=== PATIENT | female | born 1960 | race American Indian/Alaskan Native ===

== ENCOUNTER 2022-07-05 12:39 | Emergency (ER) | payer OTHER ==
--- NOTE | 2022-07-05 13:20 | XRay Report ---
LEFT KNEE 2 VIEWS INDICATION: Fall 1 day ago, left knee pain. COMPARISON: None. IMPRESSION: Moderate to severe tricompartmental osteoarthritic changes are identified. No acute osse ous injury or bone lesion is detected. Moderate joint effusion is noted on the lateral image. Signer Name: Bear Weinstein Jr, MD Signed: 07/05/2022 1:15 PM Workstation Name: [id number]
[2022-07-05] MEDS ORDERED: IBUPROFEN 400 MG TAB PO ONE (20:19)
[2022-07-05] MEDS ORDERED: HYDROcodone/ACETAMINOPHEN 5-325 MG TAB PO ONE (20:19)
--- NOTE | 2022-07-05 20:21 | Emergency Department Report ---
ED General Adult HPI - General Chief complaint: Extremity Injury, Lower Stated complaint: FALL/LT KNEE PAIN Time Seen by Provider: 07/05/22 19:56 Source: patient Mode of arrival: Ambulatory Limitations: No Limitations - History of Present Illness Initial comments: 58-year-old female with past medical history hypertension reports to the ER after having a ground-level fall at a parking deck yesterday afternoon. Patient reports left knee pain and left shoulder pain. Patient reports pain is 9 out of 10. Patient reports she was ambulatory after fall yesterday. No other acute symptoms reported at this time. Patient has not taken anything for her pain since her fall. Severity scale (0 -10): 10 - Related Data Previous Rx's Medication Instructions Recorded Last Taken Type Ibuprofen [Motrin] 400 mg PO Q8H PRN 5 Days #15 tablet 07/05/22 Unknown Rx Allergies Allergy/AdvReac Type Severity Reaction Status Date / Time No Known Allergies Allergy Verified 07/05/22 12:52 ED Review of Systems ROS: Stated complaint: FALL/LT KNEE PAIN Other details as noted in HPI Comment: All other systems reviewed and negative Musculoskeletal: other (Left knee left shoulder pain) ED Past Medical Hx - Past Medical History Previous Medical History?: Yes Hx Hypertension: Yes - Surgical History Past Surgical History?: Yes Additional Surgical History: appendectomy - Medications Home Medications: Home Medications Medication Instructions Recorded Confirmed Last Taken Type Ibuprofen [Motrin] 400 mg PO Q8H PRN 5 Days #15 tablet 07/05/22 Unknown Rx ED Physical Exam - General Limitations: No Limitations General appearance: alert, in no apparent distress - Head Head exam: Present: atraumatic, normocephalic - Eye Eye exam: Present: normal appearance - ENT ENT exam: Present: mucous membranes moist - Neck Neck exam: Present: normal inspection - Respiratory Respiratory exam: Present: normal lung sounds bilaterally. Absent: respiratory distress - Cardiovascular Cardiovascular Exam: Present: regular rate, normal rhythm. Absent: systolic murmur, diastolic murmur, rubs, gallop - GI/Abdominal GI/Abdominal exam: Present: soft, normal bowel sounds - Extremities Exam Extremities exam: Present: normal inspection - Expanded Upper Extremity Exam Left Shoulder Exam: Present: full ROM, tenderness. Absent: swelling, deformity - Expanded Lower Extremity Exam Left Knee exam: Present: full ROM, tenderness, swelling. Absent: deformity, disloc ation - Back Exam Back exam: Present: normal inspection - Neurological Exam Neurological exam: Present: alert, oriented X3 - Psychiatric Psychiatric exam: Present: normal affect, normal mood - Skin Skin exam: Present: warm, dry, intact, normal color. Absent: rash ED Course Vital Signs 07/05/22 07/05/22 12:52 22:50 Temperature 98.9 F Pulse Rate 70 58 L Respiratory 16 17 Rate Blood Pressure 174/63 117/66 [Right] O2 Sat by Pulse 100 100 Oximetry ED Medical Decision Making - Radiology Data [address] [address] XRay Report Signed Patient: BECKY GÓMEZ MR#: [id number] 213 : 1960 Acct:[id number] Age/Sex: 61 / F ADM Date: 07/05/22 Loc: ED Attending Dr: Ordering Physician: SHAUNNA BLANCHARD NP Date of Service: 07/05/22 Procedure(s): XR shoulder 2+V LT Accession Number(s): [id number] cc: SHAUNNA BLANCHARD NP Fluoro Time In Minutes: LEFT SHOULDER 3 VIEWS INDICATION / CLINICAL INFORMATION: Left shoulder pain after fall. COMPARISON: None available. FINDINGS: BONES and JOINT(S): No acute fracture or subluxation. There is mild degenerative arthrosis of the glenohumeral and AC joints. SOFT TISSUES: No significant abnormality. ADDITIONAL FINDINGS: None. IMPRESSION: 1. No acute findings. Signer Name: Km High MD Signed: 07/05/2022 9:30 PM Workstation Name: [id number] Transcribed By: MN Dictated By: Km High MD Electronically Authenticated By: Km High MD Signed Date/Time: 07/05/222129 DD/ [address] [address] XRay Report Signed Patient: BECKY GÓMEZ MR#: [id number] 213 : 1960 Acct:[id number] Age/Sex: 61 / F ADM Date: 07/05/22 Loc: ED Attending Dr: Ordering Physician: LYN EDWARDS MD Date of Service: 07/05/22 Procedure(s): XR knee 1-2V LT Accession Number(s): [id number] cc: ED DOC, Fluoro Time In Minutes: LEFT KNEE 2 VIEWS INDICATION: Fall 1 day ago, left knee pain. COMPARISON: None. IMPRESSION: Moderate to severe tricompartmental osteoarthritic changes are identified. No acute osseous injury or bone lesion is detected. Moderate joint effusion is noted on the lateral image. Signer Name: Bear Weinstein Jr, MD Signed: 07/05/2022 1:15 PM Workstation Name: [id number] Transcribed By: TTR Dictated By: BEAR WEINSTEIN JR, MD Electronically Authenticated By: BEAR WEINSTEIN JR, MD Signed Date/Time: 07/05/221314 DD/ 14 TD/TT: - Medical Decision Making 58-year-old female with past medical history hypertension reports to the ER after having a ground-level fall at a parking deck yesterday afternoon. Patient reports left knee pain and left shoulder pain. Patient reports pain is 9 out of 10. Patient reports she was ambulatory after fall yesterday. No other acute symptoms reported at this time. Patient has not taken anything for her pain since her fall. Left shoulder full range of motion intact tenderness noted. No deformity no dislocation noted Left knee for range of motion intact tenderness noted with slight swelling. No deformity no dislocation noted. X-ray of left shoulder and left knee with no acute fracture or dislocation noted. Patient informed of her x-ray of left knee and left shoulder results. Patient is stable for discharge home. Patient reports a decrease in pain after receiving oral pain medication here in ER. Patient informed to follow her primary care provider Vital Signs 07/05/22 07/05/22 12:52 22:50 Temperature 98.9 F Pulse Rate 70 58 L Respiratory 16 17 Rate Blood Pressure 174/63 117/66 [Right] O2 Sat by Pulse 100 100 Oximetry Critical care attestation.: If time is entered above; I have spent that time in minutes in the direct care of this critically ill patient, excluding procedure time. ED Disposition Clinical Impression: Fall from ground level Left shoulder pain Qualifiers: Chronicity: acute Qualified Code(s): M25.512 - Pain in left shoulder Left knee pain Qualifiers: Chronicity: acute Qualified Code(s): M25.562 - Pain in left knee Disposition: 01 HOME / SELF CARE / HOMELESS Is pt being admited?: No Condition: Stable Instructions: Acute Knee Pain, Adult, Shoulder Pain, Musculoskeletal Pain Prescriptions: Ibuprofen [Motrin] 400 mg PO Q8H PRN 5 Days #15 tablet PRN Reason: Pain , Severe (7-10) Referrals: CLEVELAND TYSON MD [Primary Care Provider] - 3-5 Days
--- NOTE | 2022-07-05 21:34 | XRay Report ---
LEFT SHOULDER 3 VIEWS INDICATION / CLINICAL INFORMATION: Left shoulder pain after fall. COMPARISON: None available. FINDINGS: BONES and JOINT(S): No acute fracture or subluxation. There is mild degenerative arthrosis of the gle nohumeral and AC joints. SOFT TISSUES: No significant abnormality. ADDITIONAL FINDINGS: None. IMPRESSION: 1. No acute findings. Signer Name: Km High MD Signed: 07/05/2022 9:30 PM Workstation Name: [id number]
[2022-07-05 22:54] VITALS: BP 117/66
== END 2022-07-05 22:50 | disposition home or self-care (01) ==
LOC: ED 12:39
DX: M25.562 Pain in left knee (principal); M25.512 Pain in left shoulder; W18.30XA Fall on same level, unspecified, initial encounter; Y93.89 Activity, other specified; Y92.89 Other specified places as the place of occurrence of the external cause; Y99.8 Other external cause status
CPT/HCPCS: 99283